=== PATIENT | male | born 1955 | race African-American/Black ===

== ENCOUNTER 2018-12-28 14:28 | Emergency (ER) | payer SELFPAY ==
[~2018-12-28] VITALS: Ht 177.8 cm; Wt 88.5 kg
--- OUTSIDE RECORDS SUMMARY | 2018-12-28 14:30 | XMS REPORT | Clinical Summary ---
Author Author [facility] Organization [facility] Address Unknown Phone Unavailable Care Team Providers [employer] Director [employer] Name Role Phone Cathryn Vivar MD PCP Allergies No Known Allergies Medications End Date Status Medication Sig Dispensed Refills Start Date Active atorvastatin (LIPITOR) 10 Take 1 tablet 90 tablet 2 mg tabletIndications: HTN by mouth at 3 (hypertension) bedtime. Active omeprazole (PRILOSEC) 20 Take 1 90 capsule 1 mg delayed release capsule by 5 capsuleIndications: GERD mouth daily. (gastroesophageal reflux disease) Active sildenafil citrate Take 0.5 10 tablet 1 (VIAGRA) 100 mg tablets by 5 tabletIndications: mouth as Erectile dysfunction needed for Erectile Dysfunction Take 30 minutes prior to intercourse as needed. Active naproxen (NAPROSYN) 500 Take 1 tablet 60 tablet 0 mg tabletIndications: by mouth 2 8 Acute pain of left times daily shoulder (with meals). Active cyclobenzaprine Take 1 tablet 30 tablet 0 (FLEXERIL) 10 mg by mouth 8 tabletIndications: Left every 8 hours upper arm pain as needed for Muscle Spasms. Active traMADol (ULTRAM) 50 mg Take 1 tablet 60 tablet 3 tabletIndications: Acute by mouth 9 pain of left shoulder every 6 hours as needed for Pain. Active lisinopril-hydrochlorothi Take 1 tablet 90 tablet 0 azide (ZESTORETIC) 20-25 by mouth 9 mg per tabletIndications: daily. Essential hypertension, benign Active amLODIPine (NORVASC) 5 mg Take 1 tablet 90 tablet 0 tabletIndications: by mouth 9 Essential hypertension daily. 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 left shoulder 01/20/2018 Discontinued DICLOFENAC SODIUM 75 mg Take 1 tablet 60 tablet 1 delayed release by mouth 2 2 tabletIndications: times daily. Chronic back pain 01/20/2018 Discontinued hydrochlorothiazide Take 1 tablet 90 tablet 2 (HYDRODIURIL) 25 mg by mouth 3 tabletIndications: HTN daily. (1 (hypertension) tablet=25 mg) 03/08/2018 Discontinued amLODIPine (NORVASC) 10 Take 1 tablet 90 tablet 2 mg tabletIndications: HTN by mouth 3 (hypertension) daily. 02/22/2018 Discontinued hydroCHLOROthiazide Take 1 tablet 30 tablet 0 (HYDRODIURIL) 25 mg by mouth 8 tabletIndications: HTN daily (1 (hypertension) tablet=25 mg). 02/22/2018 Discontinued ibuprofen (MOTRIN) 800 mg Take 1 tablet 30 tablet 0 tabletIndications: Left by mouth 8 upper arm pain every 8 hours as needed for Pain. 04/21/2018 Discontinued lisinopril-hydrochlorothi Take 1 tablet 30 tablet 1 azide (ZESTORETIC) 20-25 by mouth 8 mg per tabletIndications: daily. Essential hypertension, benign 04/03/2018 Discontinued ibuprofen (MOTRIN) 800 mg Take 1 tablet 60 tablet 0 tabletIndications: Left by mouth 8 upper arm pain every 8 hours as needed for Pain. 04/03/2018 Discontinued acetaminophen-codeine Take 1 tablet 30 tablet 0 (TYLENOL/CODEINE #3) by mouth 2 8 300-30 mg per times daily tabletIndications: as needed for Chronic left shoulder Pain. pain 03/08/2018 Discontinued amLODIPine (NORVASC) 5 mg Take 1 tablet 90 tablet 1 tabletIndications: by mouth 8 Essential hypertension daily. 09/04/2018 Discontinued amLODIPine (NORVASC) 5 mg Take 1 tablet 90 tablet 1 tabletIndications: by mouth 8 Essential hypertension daily. 05/17/2018 Discontinued acetaminophen-codeine Take 1 tablet 15 tablet 0 (TYLENOL/CODEINE #3) by mouth 2 8 300-30 mg per times daily tabletIndications: as needed for Chronic left shoulder Pain. pain 04/28/2018 Discontinued ibuprofen (MOTRIN) 800 mg Take 1 tablet 60 tablet 0 tabletIndications: by mouth 8 Chronic left shoulder every 8 hours pain as needed for Pain. 04/28/2018 Discontinued lisinopril-hydrochlorothi Take 1 tablet 30 tablet 1 azide (ZESTORETIC) 20-25 by mouth 8 mg per tabletIndications: daily. Essential hypertension, benign 05/15/2018 Discontinued traMADol (ULTRAM) 50 mg Take 2 30 tablet 0 tabletIndications: tablets by 8 Primary osteoarthritis of mouth nightly left shoulder, Rotator at bedtime as cuff tear arthropathy of needed for left shoulder Pain. 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 left shoulder 10/18/2018 Discontinued lisinopril-hydrochlorothi Take 1 tablet 90 tablet 1 azide (ZESTORETIC) 20-25 by mouth 8 mg per tabletIndications: daily. Essential hypertension, benign 06/07/2018 Discontinued traMADol (ULTRAM) 50 mg Take 2 60 tablet 0 tabletIndications: tablets by 8 Primary osteoarthritis of mouth nightly left shoulder, Rotator at bedtime as cuff tear arthropathy of needed for left shoulder Pain. 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 left shoulder 07/03/2018 Discontinued traMADol (ULTRAM) 50 mg Take 2 60 tablet 0 tabletIndications: tablets by 8 Primary osteoarthritis of mouth nightly left shoulder, Rotator at bedtime as cuff tear arthropathy of needed for left shoulder Pain. 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 left shoulder 08/14/2018 Discontinued traMADol (ULTRAM) 50 mg Take 2 60 tablet 0 tabletIndications: tablets by 9 Primary osteoarthritis of mouth nightly left shoulder, Rotator at bedtime as cuff tear arthropathy of needed for left shoulder Pain. 07/18/2018 amoxicillin (AMOXIL) 500 Take 1 30 capsule 0 mg capsuleIndications: capsule by 9 Acute upper respiratory mouth 3 times infection of multiple daily for 10 sites days. 09/13/2018 Discontinued traMADol (ULTRAM) 50 mg Take 2 60 tablet 0 tabletIndications: tablets by 9 Primary osteoarthritis of mouth nightly left shoulder, Rotator at bedtime as cuff tear arthropathy of needed for left shoulder Pain. 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 left shoulder 12/08/2018 Discontinued amLODIPine (NORVASC) 5 mg Take 1 tablet 90 tablet 0 tabletIndications: by mouth 9 Essential hypertension daily. Status Hospital, Clinic, or Ordered Dose Route Frequency Start End Date Other Facility Date Administered Medication Discontinued aspirin tablet 325 325 mg OR ONCE 01/21/20 mgIndications: Chest 18 8 pain, unspecified type Ended aspirin (ASPIRIN) 324 mg ORAL (CHEW) ONCE 01/21/20 chewable tablet 324 18 8 mgIndications: Chest pain, unspecified type Ended triamcinolone acetonide 40 mg IX ONCE 03/29/20 (KENALOG-40) injection 40 18 8 mgIndications: Chronic pain in left shoulder Ended lidocaine 1 % (XYLOCAINE) 4 mL IJ ONCE 03/29/20 injection 4 18 8 mLIndications: Chronic pain in left shoulder Active Problems Problem Noted Date Other chest pain 01/20/2018 Acute pain of left shoulder 01/20/2018 Myopia with astigmatism and presbyopia 09/09/2014 Combined form of senile cataract 09/09/2014 HTN (hypertension) 08/15/2012 Varicose vein 01/20/2012 Back pain 09/01/2009 Encounters Care Team Description Date Type Specialty Sarah France PA Abdominal pain, unspecified abdominal location (Primary Dx); Diarrhea, unspecified type; Nausea; Muscle cramping 12/28/2018 Office Visit Family Practice Cathryn Vivar MD Primary osteoarthritis of left shoulder; Rotator cuff tear arthropathy of left shoulder 12/22/2018 Refill Family Practice Cathryn Vivar MD Essential hypertension 12/08/2018 Refill [facility] Dieter Reddy MD Incomplete tear of left rotator cuff (Primary Dx); Acute pain of left shoulder 12/06/2018 Office Visit Orthopedics 12/06/2018 Travel Cathryn Vivra MD Essential hypertension, benign 10/18/2018 Refill Family Practice Dieter Reddy MD Acute pain of left shoulder (Primary Dx) 09/13/2018 Office Visit Orthopedics 09/13/2018 Cathryn Bunch MD Essential hypertension 09/04/2018 Refill Family Practice Cathryn Vivar MD Primary osteoarthritis of left shoulder; Rotator cuff tear arthropathy of left shoulder 08/14/2018 Refill Family Practice Dieter Reddy MD Pain (Primary Dx); Dietary counseling for Above / Below Normal BMI; Exercise counseling for Above Normal BMI Only!; Acute pain of left shoulder 07/19/2018 Office Visit Orthopedics Dieter Reddy MD Pain 07/19/2018 Hospital Radiology Encounter Team, 1-Pt Susan Mcnulty Chronic left shoulder pain (Primary Dx) 07/11/2018 Therapy Physical Therapy Pam Nguyen, ART Acute upper respiratory infection of multiple sites (Primary Dx) 07/08/2018 Same Day Family Practice 07/08/2018 Travel Cathryn Vivar MD Primary osteoarthritis of left shoulder; Rotator cuff tear arthropathy of left shoulder 07/03/2018 Refill Family Practice Cathryn Vivar MD Primary osteoarthritis of left shoulder; Rotator cuff tear arthropathy of left shoulder 06/28/2018 Refill Family Practice Jannette Leon MD Hadgu, Akberet T 06/08/2018 Hospital Cardiology Encounter Dieter Reddy MD Pain (Primary Dx) 06/07/2018 Office Visit Orthopedics Cathryn Vivar MD Primary osteoarthritis of left shoulder; Rotator cuff tear arthropathy of left shoulder 06/07/2018 Refill Family Practice 06/07/2018 Cathryn Bunch MD Primary osteoarthritis of left shoulder; Rotator cuff tear arthropathy of left shoulder 05/23/2018 Refill Family Practice Cathryn Vivar MD Wendt, Juliet A, MD 05/22/2018 Hospital Radiology Encounter Cathryn Vivar MD Primary osteoarthritis of left shoulder; Rotator cuff tear arthropathy of left shoulder 05/15/2018 Refill Family Practice Cristi Jonh, OD Cathryn Vivar MD Combined forms of age-related cataract of both eyes (Primary Dx); Pinguecula, bilateral; Bilateral dry eyes; Refractive error 05/01/2018 Office Visit Ophthalmology Cathryn Vivar MD Primary osteoarthritis of left shoulder (Primary Dx); Rotator cuff tear arthropathy of left shoulder; Essential hypertension, benign; Insomnia, unspecified type 04/28/2018 Office Visit Family Practice Cathryn Vivar MD Essential hypertension, benign 04/21/2018 Refill [facility] Chronic left shoulder pain 04/19/2018 Ancillary Radiology Procedure Cathryn Vivar MD Chronic left shoulder pain (Primary Dx); Need for vaccination; Angina pectoris; Lightheaded 04/03/2018 Office Visit Family Practice Cathryn Vivar MD Angina pectoris 04/03/2018 Orders Only [facility] Jeanie Laura MD Chronic pain in left shoulder (Primary Dx) 03/29/2018 Office Visit Family Practice Cathryn Vivar MD Rodriguez, Maricela Essential hypertension 03/08/2018 Nurse Only Cathryn Vivar MD Other chest pain (Primary Dx); Chronic left shoulder pain; Essential hypertension, benign; Hypertensive urgency; Preventative health care; Left upper arm pain 02/22/2018 Office Visit Family Practice Cathryn Vivar MD Chronic left shoulder pain; Preventative health care 02/22/2018 Orders Only [facility] Brandi Fernandez NP Left upper arm pain (Primary Dx) 02/01/2018 Same Day Family Practice Pablo Choudhury III, MD Other chest pain (Primary Dx); Acute pain of left shoulder; HTN (hypertension) 01/20/2018 Emergency Emergency Medicine - 01/21/2018 Sarah France PA Chest pain, unspecified type (Primary Dx); Left arm pain; Abnormal EKG; Hypertension, uncontrolled; Nonadherence to medication 01/20/2018 Office Visit Family Practice after 12/27/2017 Immunizations Name Administration Dates Next Due Influenza Vaccine 07/11/2014, 06/16/2013 Influenza Vaccine, 07/08/2018 (Deferred: Contraindication), Seasonal, Injectable 04/03/2018 (Deferred: Patient Refused) Td Tetanus, diphtheria 07/04/2007 Toxoids Vaccine Tdap (Tetanus Toxoid, 02/22/2018 (Deferred: Patient Refused) Reduced Diphtheria Toxoid And Acellular Pertussis, Absorbed) Family History Medical History Relation Name Comments Cancer Brother Leukemia Heart Father CAD Hypertension Father Cancer Mother unknown type Relation Name Status Comments Brother Father Alive Maternal Grandfather Maternal Grandmother Mother Paternal Grandfather Paternal Grandmother Social History Date Tobacco Use Types Packs/Day Years Used Quit: 02/23/2012 Former Smoker Cigarettes 0.5 30 Smokeless Tobacco: Never Used Tobacco Cessation: Counseling Given: No Comments: smoked for approximately 20 years, stopped in 2011 Drinks/Week oz/Week Comments Alcohol Use occasional Yes Food Insecurity Answer Date Recorded Within the past 12 months, you worried that your Never true 02/22/2018 food would run out before you got money to buy more. Within the past 12 months, the food you bought Never true 02/22/2018 just didn't last and you didn't have money to get more. Sex Assigned at Date Recorded Not on file Industry Job Start Date Occupation Not on file Not on file Not on file Travel End Travel History Travel Start No recent travel history available. Last Filed Vital Signs Reading Time Taken Comments Vital Sign 128/89 12/28/2018 11:20 AM CDT Blood Pressure 110 12/28/2018 11:20 AM CDT Pulse 36.6 C (97.8 F) 12/28/2018 11:20 AM CDT Temperature 25 12/28/2018 11:20 AM CDT Respiratory Rate 98% 12/28/2018 11:20 AM CDT Oxygen Saturation - - Inhaled Oxygen Concentration 88.5 kg (195 lb) 12/28/2018 11:20 AM CDT Weight 177.8 cm (5' 10") 12/28/2018 11:20 AM CDT Height 27.98 12/28/2018 11:20 AM CDT Body Mass Index Plan of Treatment Health Maintenance Due Date Last Done Comments Colorectal Cancer Scrn 2005 Annual (FIT/FOBT) Age 50 to 75 Procedures Comments Procedure Name Priority Date/Time Associated Diagnosis LIDOCAINE 1% W/EPI 30ML Routine 09/13/2018 Acute pain of left INJ IN CLINIC 8:41 AM CDT shoulder XRAY SHOULDER 3 VIEWS - Routine 07/19/2018 Pain ROUTINE 8:26 AM SPLITTER HAND TRANSTHORACIC ECHO (TTE) Routine 06/08/2018 Other chest pain 10:48 AM SPLITTER HAND MYOCARDIAL PERFUSION Routine 05/22/2018 Angina pectoris SPECT REST/STRES MULTIPLE 12:45 PM SPLITTER HAND TREADMILL STRESS-TRACING 05/22/2018 ONLY 9:22 AM SPLITTER HAND MRI SHOULDER JOINT W/O Routine 04/19/2018 Chronic left shoulder CONTRAST 6:46 PM CDT pain HEPATITIS PANEL Routine 02/22/2018 Preventative health care 10:24 AM CDT HIV-1/HIV-2 ROUTINE Routine 02/22/2018 Preventative health care SCREENING 10:24 AM CDT THYROID STIMULATING Routine 02/22/2018 Preventative health care HORMONE (TSH) 10:24 AM CDT LIPID PROFILE Routine 02/22/2018 Preventative health care 10:24 AM CDT HEMOGLOBIN A1C Routine 02/22/2018 Preventative health care 10:24 AM CDT COMPREHENSIVE METABOLIC Routine 02/22/2018 Preventative health care PANEL 10:24 AM CDT CBC/DIFF Routine 02/22/2018 Preventative health care 10:24 AM CDT 12 LEAD EKG Routine 01/20/2018 10:37 PM CDT TROPONIN I POC Routine 01/20/2018 9:08 PM CDT XRAY SHOULDER 3 VIEWS - Routine 01/20/2018 Acute pain of left ROUTINE 8:49 PM CDT shoulder XRAY CHEST 2 VIEWS Routine 01/20/2018 Other chest pain 8:49 PM CDT TROPONIN I POC Routine 01/20/2018 4:56 PM CDT 12 LEAD EKG Routine 01/20/2018 4:49 PM CDT BMP POC Routine 01/20/2018 2:39 PM CDT TROPONIN I POC Routine 01/20/2018 2:37 PM CDT HIV-1/HIV-2 ROUTINE STAT 01/20/2018 SCREENING 2:30 PM CDT CBC/DIFF STAT 01/20/2018 2:30 PM CDT 12 LEAD EKG Routine 01/20/2018 2:21 PM CDT BMP POC Routine 01/20/2018 11:07 AM CDT 12 LEAD EKG Routine 01/20/2018 Left arm pain 10:50 AM CDT after 12/27/2017 Results * XRAY SHOULDER 3 VIEWS - ROUTINE (07/19/2018 8:26 AM SPLITTER HAND) Only the most recent of 2 results within the time period is included. Specimen Impressions Performed At IMPRESSION: SMS 1. No acute radiographic abnormality. 2. Moderate osteoarthrosis of the acromioclavicular joint. 3. Mild osteoarthrosis of the glenohumeral joint. Dictated By: Shailesh Amor MD, 07/19/2018 8:37 AM I have reviewed the study and agree with the findings in this report. Signed By: Raad Gay MD, 07/19/2018 9:04 AM Narrative Performed At Left shoulder radiographs - 3 images(s) SMS HISTORY:pain COMPARISON: Shoulder radiograph 01/20/2018 DISCUSSION: Bone: No acute displaced fracture. No aggressive osseous lesion. Joints: Moderate acromioclavicular joint osteophytosis and joint space narrowing. Mild glenohumeral joint space narrowing and osteophytosis. No dislocation. Soft tissues: Appear unremarkable. Procedure Note Interface, Rad/Mammog In - 07/19/2018 9:09 AM SPLITTER HAND Left shoulder radiographs - 3 images(s) HISTORY: pain COMPARISON: Shoulder radiograph 01/20/2018 DISCUSSION: Bone: No acute displaced fracture. No aggressive osseous lesion. Joints: Moderate acromioclavicular joint osteophytosis and joint space narrowing. Mild glenohumeral joint space narrowing and osteophytosis. No dislocation. Soft tissues: Appear unremarkable. IMPRESSION IMPRESSION: 1. No acute radiographic abnormality. 2. Moderate osteoarthrosis of the acromioclavicular joint. 3. Mild osteoarthrosis of the glenohumeral joint. Dictated By: Shailesh Amor MD, 07/19/2018 8:37 AM I have reviewed the study and agree with the findings in this report. Signed By: Raad Gay MD, 07/19/2018 9:04 AM Performing Organization Address City/State/Zipcode Phone Number SMS * TRANSTHORACIC ECHO (TTE) (06/08/2018 10:48 AM SPLITTER HAND) TRANSTHORACIC Transthoracic SMS ECHO (TTE) Echo Report LEON RODRIGUEZ Age:63 Gender: M :1955 Exam Date: 06/08/2018 10:48 Exam Location: [facility] Echo Ordering Phys: CATHRYN VIVAR Referring Phys: Reading Phys:Ivana Lala MD Fellow Phys: Fellow Phys: Superintendent Of Generation: Natalie Slaughter Reason For Exam: Indications: Chest pain, Chest pain, unspecified ICD-9 Codes: R07.9 Exam Type: TRANSTHORACIC ECHO (TTE) Procedure CPT:89183 Addtional CPT: Ht (in): 70 BSA: 2.20HR: 60 Rhythm: Sinus rhythm Wt (lb): 212BP: 133/ 86 Technical Quality: Technically difficult study History: MEASUREMENTS Normal ranges based on 95% confidence intervals for adults, some normal patients may fall outside of this range especially when indexing for BSA 2D ECHO LV Diastolic Diameter PLAX4.5 cm 4.2-5.8 (M) / 3.8-5.2 (F) IVS Diastolic Thickness 1.1 cm 0.6-1.0 (M) / 0.6-0.9 (F) LVPW Diastolic Thickness1 cm 0.6-1.0 (M) / 0.6-0.9 (F) LV Relative Wall Thickness0.49 <=0.42 Aortic Root Diameter 3.2 cm LV Mass by linear [id number] g LV Mass by linear method Index78.8 g/m DOPPLER LVOT Peak Velocity 85.9 cm/s LVOT Peak Gradient 3 mmHg LVOT Mean Velocity 51.1 cm/s LVOT Mean Gradient 1 mmHg LVOT Velocity Time Integral 16.7 cm FINDINGS Left Ventricle The left ventricle is normal in size. Normal LV wall thickness. LV systolic function is normal. LVEF is 55-59%. There are no regional wall motion abnormalities.There is normal LV relaxation with normal filling pressures. Right Ventricle The right ventricle is normal in size and systolic function. Right Atrium The right atrium is normal in size. Left Atrium The left atrium is normal in size. IAS Mitral Valve Structurally normal mitral valve without significant stenosis or prolapse. There is no mitral regurgitation. Aortic Valve The aortic valve is trileaflet, mild leaflet thickening. There is no aortic stenosis. There is no aortic regurgitation. Tricuspid Valve Structurally normal tricuspid valve without significant stenosis. Insufficient TR jet to estimate pulmonary artery systolic pressure. Pulmonic Valve Structurally normal pulmonic valve without significant stenosis. There is trace pulmonic regurgitation. Pericardium No pericardial effusion. Aorta Normal aortic root for body surface area. IVC The inferior vena cava is normal in size.RA pressure is 0-5 mmHg. CONCLUSIONS Echocardiographic contrast was administered for better endocardial visualization. The left ventricle is normal in size. Normal LV wall thickness. LV systolic function is normal. LVEF is 55-59%. There are no regional wall motion abnormalities.There is normal LV relaxation with normal filling pressures. The right ventricle is normal in size and systolic function. No significant valve abnormalities. No prior study for comparison. Ivana Lala MD (Electronically Signed) Final Date:08 June 2018 14:37 2D ECHO LV Diastolic Diameter PLAX4.5 cm 4.2-5.8 (M) / 3.8-5.2 (F) IVS Diastolic Thickness 1.1 cm 0.6-1.0 (M) / 0.6-0.9 (F) LVPW Diastolic Thickness1 cm 0.6-1.0 (M) / 0.6-0.9 (F) LV Relative Wall Thickness0.49 <=0.42 Aortic Root Diameter 3.2 cm LV Mass by linear [id number] g LV Mass by linear method Index78.8 g/m DOPPLER LVOT Peak Velocity 85.9 cm/s LVOT Peak Gradient 3 mmHg LVOT Mean Velocity 51.1 cm/s LVOT Mean Gradient 1 mmHg LVOT Velocity Time Integral 16.7 cm Specimen Performing Organization Address City/State/Zipcode Phone Number SMS * MYOCARDIAL PERFUSION SPECT REST/STRES TAMMY (05/22/2018 12:45 PM SPLITTER HAND) MYOCARDIAL Myocardial Perfusion SMS PERFUSION SPECT Report REST/STRES LEON RODRIGUEZ Age:63Gender: M :1955 Exam Date: 05/22/2018 10:59 Exam Location:[facility] Ordering Phys: CATHRYN VIVAR Referring Phys: Reading Phys:Consuelo Keller MD Fellow Phys: Gian Chinchilla M.D. Fellow Phys: Varun Ferguson M.D. Resident: Technologist: Mary Mcnamara Reason For Exam: Indications: ANGINA, Other forms ICD-9 Codes:I20.9 Exam Type: Myocardial Perfusion Report Procedure CPT: 82216 Additional CPT: BP:/ HR: Risk Factors: Previous Cardiac Procedures: Cardiac History: 63 year-old with hx of HTN, HLD, smoker who presents with atypical pain. Pertinent Meds: Meds past 24 hrs: Pretest Chest Pain: CARDIOLOGY STRESS TEST Pharmacologi Cardiology exercise stress test results pending under separate report. Please look in EPIC under the Procedures Tab in Chart Review. IMAGE PROTOCOLRst/Str 1 Day Radiopharmaceutical Dose (mCi)Duration (min)Img Date Img Time Rest: Tc-99m 13.8 REST [id number] Tetrofosmin Stress: Tc-99m 36.0 STRESS [id number] Tetrofosmin Administration Site:Right antecubital fossa SPECT RESULTS Technical Quality:Adequate Raw Data Analysis:Diaphragm atic attenuation, Adequate Stress Perfusion Rest Perfusion Summed Stress Score:0 Summed Rest Score: 0 Summed Difference Score: 0 0 - Normal 2 - Abnormal Uptake 4 - Absent 1 - Mildly Reduced Uptake 3 - Severely Reduced Tracer Uptake X - Not Interpretable RV: Stress images show a normal pattern of perfusion. Resting images show no change in the pattern of perfusion. FUNCTION (calculated via Gated SPECT) Resting LV EF: % EDV:118ml (70-100 ml) Post Stress LV EF: 45% TID:1.24 ESV:65 ml (30-50 ml) Technical Quality: LV Size & Function: LV ejection fraction is mildly depressed. LV cavity size is normal. LV Regional Function: LV function is globally mildly depressed. Other Findings: Variable Not Implemented IMPRESSIONS 1. Myocardial perfusion imaging is normal. EF is mildly depressed. 2. No scan evidence of ischemia or scar. 3. Overall left ventricular function is mildly depressed with globally depressed wall motion. 4. Abnormal gated SPECT left ventricular ejection fraction of 45%. 5. Normal left ventricular size. 6. No previous study for comparison. 7. Please see ECG report in Epic for details of tracing interpretation. Roxana Control: Do not remove! Consuelo Keller MD (Electronically Signed) Final Date:22 May 2018 15:29 Specimen Performing Organization Address [facility] Phone Number SMS * TREADMILL STRESS-TRACING ONLY (05/22/2018 9:22 AM SPLITTER HAND) Stress Test [facility] Test Date:2018-05-22 Pat Name: LEON RODRIGUEZ Department: [id number] Room: Gender: Monotypist: YAKOV WREN :1955-0 01-19 Requested By: CARLITA KELLER Order Number: [id number] Reading MD: Lucrecia Valdes M.D. Interpretive Statements ECG PORTION OF TREADMILL NUCLEAR STRESS TEST Indication: chest pain Findings: The patient exercised according to the ANGEL for 6:36 min:s, achieving a work level of Max. METS: 7.00. The resting heart rate of 74 bpm yaanna to a maximal heart rate of 142 bpm. This value represents 90 % of the maximal, age-predicted heart rate. The resting blood pressure of 130/80 mmHg , ayanna to a maximum blood pressure of 198/100 mmHg. The exercise test was stopped due to Target heart rate achieved. Conclusions: 1. Testing terminated due to end of test. No chest pain/pressure noted. 2. Baseline EKG:SR without ST changes.Stress EKG: SR with 1 - 1.[address] depressions at peak exercise which nearly resolved in early recovery. 3. Noted arrhythmias:occasional premature ventricular contractions 4. Please see results from nuclear stress test from the same date for perfusion data. Electronically Signed On 05-22-2018 15:07:13 SPLITTER HAND by Lucrecia Valdes M.D. Specimen Performing Organization Address [facility] Phone Number SMS * MRI SHOULDER JOINT W/O CONTRAST (04/19/2018 6:46 PM CDT) Specimen Impressions Performed At IMPRESSION: SMS 1.High grade tearing and retraction of the articular fibers of the conjoined tendon and focal full-thickness tearing of the anterior supraspinous tendon, and mild tendinosis of the biceps tendon. 2.Mild to moderate degenerative changes of the glenohumeral and acromioclavicular joints, including degenerative tearing of the labrum. Dictated By: Lowell Dietrich DO, 04/20/2018 8:23 AM I have reviewed the study and agree with the findings in this report. Signed By: Gaston Mccartney DO, 04/20/2018 3:34 PM Narrative Performed At MRI LEFT SHOULDER WITHOUT CONTRAST SMS TECHNIQUE: Magnetic resonance imaging of the left SHOULDER was performedWITHOUT injected contrast. HISTORY:Worsening pain COMPARISON: Left shoulder radiographs 01/20/2018 DISCUSSION: Muscles and Tendons: Rotator Cuff: Supraspinatus/infraspinatus:High-grade articular sided tearing with 2 cm retraction of the articular sided fibers. Focal full-thickness tear of the anterior supraspinatus. Diffuse mild muscle atrophy. Teres minor:Intact Subscapularis:Intact Biceps Tendon:Thickening and intrasubstance signal adjacent to the lesser tuberosity. Joints: Glenohumeral Joint: Labrum:Complex degenerative tearing and attenuation of the posterosuperior labrum, and focal detachment of the posteroinferior labrum. Ruby variant of anterior superior labrum. Articular Cartilage: Mild erosions of the cartilage. AC joint: Mild hypertrophic degenerative changes. Bone: Enthesopathic reactive changes in the greater and lesser tuberosities. Healed fracture deformity of the distal clavicle. The acromion is unremarkable. No focal or infiltrative bone marrow replacing abnormality. Soft Tissues: Trace fluid within the subacromial and subdeltoid bursa. Procedure Note Interface, Rad/Mammog In - 04/20/2018 3:39 PM CDT MRI LEFT SHOULDER WITHOUT CONTRAST TECHNIQUE: Magnetic resonance imaging of the left SHOULDER was performed WITHOUT injected contrast. HISTORY: Worsening pain COMPARISON: Left shoulder radiographs 01/20/2018 DISCUSSION: Muscles and Tendons: Rotator Cuff: Supraspinatus/infraspinatus: High-grade articular sided tearing with 2 cm retraction of the articular sided fibers. Focal full-thickness tear of the anterior supraspinatus. Diffuse mild muscle atrophy. Teres minor: Intact Subscapularis: Intact Biceps Tendon: Thickening and intrasubstance signal adjacent to the lesser tuberosity. Joints: Glenohumeral Joint: Labrum: Complex degenerative tearing and attenuation of the posterosuperior labrum, and focal detachment of the posteroinferior labrum. Eli variant of anterior superior labrum. Articular Cartilage: Mild erosions of the cartilage. AC joint: Mild hypertrophic degenerative changes. Bone: Enthesopathic reactive changes in the greater and lesser tuberosities. Healed fracture deformity of the distal clavicle. The acromion is unremarkable. No focal or infiltrative bone marrow replacing abnormality. Soft Tissues: Trace fluid within the subacromial and subdeltoid bursa. IMPRESSION IMPRESSION: 1. High grade tearing and retraction of the articular fibers of the conjoined tendon and focal full-thickness tearing of the anterior supraspinous tendon, and mild tendinosis of the biceps tendon. 2. Mild to moderate degenerative changes of the glenohumeral and acromioclavicular joints, including degenerative tearing of the labrum. Dictated By: Lowell Dietrich DO, 04/20/2018 8:23 AM I have reviewed the study and agree with the findings in this report. Signed By: Gaston Mccartney DO, 04/20/2018 3:34 PM Performing Organization Address [facility] Phone Number SMS * HIV-1/HIV-2 ROUTINE SCREENING (02/22/2018 10:24 AM CDT) Only the most recent of 2 results within the time period is included. HIV-1/HIV-2 Negative NEG BT MAIN-STATION 3 Specimen Performing Organization Address [facility] Phone Number MISYS BT MAIN-STATION 3 * HEMOGLOBIN A1C (02/22/2018 10:24 AM CDT) Hemoglobin A1c 6.3 (H) 4.3 - 6.1 % BT DIAGNOSTIC IMMUNOLOGY Est Average 134.1 mg/dL BT DIAGNOSTIC Gluc IMMUNOLOGY Specimen Blood Performing Organization Address [facility] Phone Number MISYS BT DIAGNOSTIC IMMUNOLOGY * COMPREHENSIVE METABOLIC PANEL(DBIL NOT INCLUDED) (02/22/2018 10:24 AM CDT) Albumin 4.1 (L) 4.2 - 5.5 g/dL BT MAIN-STATION 1 Calcium 9.3 8.6 - 10.3 mg/dL BT MAIN-STATION 1 CO2 28 21 - 31 mmol/L BT MAIN-STATION 1 Chloride 102 98 - 107 mmol/L BT MAIN-STATION 1 Creatinine 1.00 0.7 - 1.3 mg/dL BT MAIN-STATION 1 Glucose 113 (H) 70 - 110 mg/dL BT MAIN-STATION 1 Alkaline 105 (H) 34 - 104 U/L BT MAIN-STATION Phosphatase, S 1 Potassium 3.9 3.5 - 5.1 mmol/L BT MAIN-STATION 1 Sodium 142 136 - 145 mmol/L BT MAIN-STATION 1 ALT 14 7 - 52 U/L BT MAIN-STATION 1 AST (SGOT) 22 13 - 39 U/L BT MAIN-STATION 1 BUN 14 7 - 25 mg/dL BT MAIN-STATION 1 Bilirubin, 0.6 0.2 - 1.2 mg/dL BT MAIN-STATION Total 1 Protein, Total, 7.4 6.0 - 8.3 g/dL BT MAIN-STATION Serum 1 GFR, Estimated >60 mL/min/1.73 m2 BT MAIN-STATION 1 eGFR If Africn >60 mL/min/1.73 m2 BT MAIN-STATION Am 1 Anion Gap 12 BT MAIN-STATION 1 Specimen Blood Performing Organization Address City/[facility] Phone Number MISYS MAIN-STATION 1 * TSH (02/22/2018 10:24 AM CDT) TSH 0.69 0.57 - 3.74 uIU/mL BT MAIN-STATION 1 Specimen Blood Performing Organization Address City/[facility]/Zipcode Phone Number MISYS BT MAIN-STATION 1 * LIPID PROFILE (02/22/2018 10:24 AM CDT) Cholesterol 200 mg/dL BT MAIN-STATION Comment: 1 REFERENCE RANGE: Desirable: <200 mg/dL Borderline: 200-240 mg/dL High Risk: >240 mg/dL Triglyceride 156 (H) <150 mg/dL BT MAIN-STATION Comment: 1 REFERENCE RANGE: Normal: <150 mg/dL Borderline High: 150-199 mg/dL High: 200-499 mg/dL Very High: >yc=179 mg/dL HDL 43 mg/dL BT MAIN-STATION Comment: 1 Increased CHD risk: <40 mg/dL Decreased CHD risk: >60 mg/dL LDL 126 mg/dL BT MAIN-STATION Comment: 1 REFERENCE RANGE: Optimal: <100 mg/dL Near Optimal: 100-129 mg/dL Borderline High: 130-159 mg/dL High: 160-189 mg/dL Very High: >xp=162 mg/dL Specimen Blood Performing Organization Address [facility] Phone Number MISYS BT MAIN-STATION 1 * HEPATITIS PANEL (02/22/2018 10:24 AM CDT) HCV IgG Negative NEG BT MAIN-STATION 3 HBsAg Negative NEG BT MAIN-STATION 3 HAV, IgM Negative NEG BT MAIN-STATION 3 HBcAb, IgM Negative NEG BT MAIN-STATION 3 Specimen Blood Performing Organization Address [facility] Phone Number MISYS BT MAIN-STATION 3 * CBC/DIFF (02/22/2018 10:24 AM CDT) Only the most recent of 2 results within the time period is included. WBC 4.6 4.5 - 12.0 K/uL BT MAIN-STATION 2 RBC 5.16 4.60 - 6.20 M/uL BT MAIN-STATION 2 Hemoglobin 14.2 14.0 - 18.0 g/dL BT MAIN-STATION 2 Hematocrit 44.9 40.0 - 54.0 % BT MAIN-STATION 2 MCV 87 82 - 92 fL BT MAIN-STATION 2 MCH 27.5 27.0 - 31.0 pg BT MAIN-STATION 2 MCHC 31.6 (L) 32.0 - 36.0 g/dL BT MAIN-STATION 2 RDW 49.2 (H) 35.1 - 43.9 fL BT MAIN-STATION 2 Platelets 275 150 - 400 K/uL BT MAIN-STATION 2 Mean Platelet 13.6 (H) 9.4 - 12.4 fL BT MAIN-STATION Volume 2 Percent NRBC 0.0 BT MAIN-STATION 2 Absolute NRBC 0.00 BT MAIN-STATION 2 Neutrophils 43.0 34.0 - 67.9 % BT MAIN-STATION 2 Lymphs 38.5 21.8 - 50.0 % BT MAIN-STATION 2 Monocytes 12.8 (H) 5.3 - 12.0 % BT MAIN-STATION 2 Eos 4.8 0.8 - 5.0 % BT MAIN-STATION 2 Basos 0.2 0.2 - 1.2 % BT MAIN-STATION 2 Immature 0.7 (H) 0.0 - 0.5 BT MAIN-STATION Granulocytes 2 Neutrophils 1.98 1.78 - 5.36 K/uL BT MAIN-STATION (Absolute) 2 Lymphs 1.77 1.32 - 3.57 K/uL BT MAIN-STATION (Absolute) 2 Monocytes(Absol 0.59 0.30 - 0.82 K/uL BT MAIN-STATION diana) 2 Eos (Absolute) 0.22 0.04 - 0.54 K/uL BT MAIN-STATION 2 Baso (Absolute) 0.01 0.01 - 0.08 K/uL BT MAIN-STATION 2 Immature Grans 0.03 0.00 - 0.03 K/uL BT MAIN-STATION (Abs) 2 Specimen Blood Performing Organization Address City/[facility]/Zipcode Phone Number MISYS BT MAIN-STATION 2 * 12 LEAD EKG (01/20/2018 10:37 PM CDT) 12 LEAD EKG FOR [facility] Test Date:2018-01-20 Pat Name: LEON RODRIGUEZ Department: Room: Gender: M Monotypist: [id number] :1955-0 01-19 Requested By: Order Number: Nancy bermudez MD: Lucretia Gordon M.D. Measurements Intervals [place] Rate: 57 P:57 NM: 185 QRS: 61 QRSD: 90 T:122 QT: 404 QTc:396 Interpretive Statements SINUS BRADYCARDIA MODERATE T-WAVE ABNORMALITY, CONSIDER ANTEROLATERAL ISCHEMIA Electronically Signed On 01-20-18 23:10:21 CDT by Lucretia Gordon M.D. Specimen Performing Organization Address City/[facility] Phone Number [facility] * TROPONIN I POC (01/20/2018 9:08 PM CDT) Only the most recent of 3 results within the time period is included. Troponin POC 0.02 0.00 - 0.08 ng/mL BT MAIN-STATION 1 Specimen Performing Organization Address City/State/Zipcode Phone Number MISYS BT MAIN-STATION 1 * XRAY CHEST 2 VIEWS (01/20/2018 8:49 PM CDT) Specimen Impressions Performed At IMPRESSION: [facility] 1.No acute thoracic abnormality. 2.Mild central pulmonary vascular congestion. Dictated By: Parvez Mancini MD, 01/20/2018 9:12 PM I have reviewed the study and agree with the findings in this report. Signed By: North Pan MD, 01/20/2018 10:23 PM Narrative Performed At EXAMINATION:XRAY CHEST 2 VIEWS [facility] INDICATION: acs r/o COMPARISON:None FINDINGS:PA and lateral views TUBES and LINES:None. LUNGS:Lungs are well inflated. Central pulmonary vascular congestion. There is no evidence of pneumonia or pulmonary edema. PLEURA:No pleural effusion or pneumothorax. HEART AND MEDIASTINUM:The cardiomediastinal silhouette is unremarkable. Atherosclerotic calcifications of the aortic arch. BONES AND SOFT TISSUES:No acute findings. Degenerative changes of the right acromioclavicular joint. UPPER ABDOMEN: No free air under the diaphragm. Procedure Note Interface, Rad/Mammog In - 01/20/2018 10:28 PM CDT EXAMINATION: XRAY CHEST 2 VIEWS INDICATION: acs r/o COMPARISON: None FINDINGS: PA and lateral views TUBES and LINES: None. LUNGS: Lungs are well inflated. Central pulmonary vascular congestion. There is no evidence of pneumonia or pulmonary edema. PLEURA: No pleural effusion or pneumothorax. HEART AND MEDIASTINUM: The cardiomediastinal silhouette is unremarkable. Atherosclerotic calcifications of the aortic arch. BONES AND SOFT TISSUES: No acute findings. Degenerative changes of the right acromioclavicular joint. UPPER ABDOMEN: No free air under the diaphragm. IMPRESSION IMPRESSION: 1. No acute thoracic abnormality. 2. Mild central pulmonary vascular congestion. Dictated By: Parvez Mancini MD, 01/20/2018 9:12 PM I have reviewed the study and agree with the findings in this report. Signed By: North Pan MD, 01/20/2018 10:23 PM Performing Organization Address City/State/Zipcode Phone Number SMS * 12 LEAD EKG (01/20/2018 4:49 PM CDT) 12 LEAD EKG FOR SMS [facility] Test Date:2018-01-20 Pat Name: LEON RODRIGUEZ Department: Room: Gender: M Monotypist: [id number] :1955-0 01-19 Requested By: Order Number: R aidan RUSH: Nicol SALINAS M.D. Measurements Intervals [place] Rate: 56 P:9 NM: 187 QRS: 13 QRSD: 87 T:-22 QT: 386 QTc:373 Interpretive Statements SINUS BRADYCARDIA MODERATE T-WAVE ABNORMALITY, CONSIDER LATERAL ISCHEMIA T-WAVE ABNORMALITY, CONSIDER INFERIOR ISCHEMIA Electronically Signed On 01-20-18 17:58:04 CDT by Nicol SALINAS M.D. Specimen Performing Organization Address City/[facility] Phone Number SMS * BMP POC (01/20/2018 2:39 PM CDT) Only the most recent of 2 results within the time period is included. CO2 POC 27 21 - 32 mmol/L BT MAIN-STATION 1 Chloride POC 105 98 - 107 mmol/L BT MAIN-STATION 1 Potassium POC 3.6 3.50 - 5.10 mmol/L BT MAIN-STATION 1 Sodium POC 143 136 - 145 mmol/L BT MAIN-STATION 1 Glucose POC 113 (H) 74 - 106 mg/dL BT MAIN-STATION 1 Urea Nitrogen 10 7 - 18 mg/dL BT MAIN-STATION POC 1 Creatinine POC 0.9 0.6 - 1.3 mg/dL BT MAIN-STATION 1 Calcium Ionized 1.13 (L) 1.15 - 1.29 mmol/L BT MAIN-STATION POC 1 Hemoglobin POC 16.7 14.0 - 18.0 g/dL BT MAIN-STATION 1 Hematocrit POC 49.0 40.0 - 54.0 % BT MAIN-STATION 1 GFR, Estimated >60 mL/min/1.73 m2 BT MAIN-STATION 1 GFR, Estim, >60 mL/min/1.73 m2 BT MAIN-STATION Afr-Am 1 Specimen Performing Organization Address City/[facility] Phone Number MISYS BT MAIN-STATION 1 * 12 LEAD EKG (01/20/2018 2:21 PM CDT) 12 LEAD EKG FOR [facility] Test Date:2018-01-20 Pat Name: LEON RODRIGUEZ Department: Room: Gender: M Monotypist: [id number] :1955-0 01-19 Requested By: Order Number: Nancy bermudez MD: Lucrecia Valdes M.D. Measurements Intervals [place] Rate: 65 P:19 NM: 174 QRS: 40 QRSD: 79 T:-65 QT: 381 QTc:398 Interpretive Statements SINUS RHYTHM MODERATE T-WAVE ABNORMALITY, CONSIDER ANTEROLATERAL ISCHEMIA MODERATE T-WAVE ABNORMALITY, CONSIDER INFERIOR ISCHEMIA Electronically Signed On 01-20-18 15:15:51 CDT by Lucrecia Valdes M.D. Specimen Performing Organization Address City/State/Zipcode Phone Number SMS * 12 LEAD EKG (01/20/2018 10:50 AM CDT) 12 LEAD EKG FOR SHAHRZAD Rodriges [facility] Test Date:2018-01-20 Pat Name: LEON RODRIGUEZ Department: Room: Gender: Monotypist: :1955-0 01-19 Requested By: Order Number: Nancy bermudez MD: Lucretia Gordon M.D. Measurements Intervals [place] Rate: 61 P:8 NM: 195 QRS: 14 QRSD: 85 T:-24 QT: 389 QTc:394 Interpretive Statements SINUS RHYTHM MODERATE T-WAVE ABNORMALITY, CONSIDER LATERAL ISCHEMIA Electronically Signed On 01-20-18 11:12:00 CDT by Lucretia Gordon M.D. Specimen Performing Organization Address City/State/Zipcode Phone Number [facility] after 12/27/2017 Insurance Type Payer Benefit Subscriber ID Effective Phone Address Plan / Dates Group [employer] PLAN H[employer] PLAN xxxxxx 2018-6 [phone] [place] [address] [facility] xxxxxx 2018-6 [address] [place] [id number] [place] [address]
--- OUTSIDE RECORDS SUMMARY | 2018-12-28 14:31 | XMS REPORT ---
[facility] Address Unknown Phone Unavailable Care Team Providers Care Picture Hanger Name Role Phone Unavailable Unavailable Problems This patient has no known problems. Allergies, Adverse Reactions, Alerts This patient has no known allergies or adverse reactions. Medications This patient has no known medications. Encounters Start Date/Time End Date/Time Encounter Type Admission Type Attending [facility] Care Department Encounter ID 2018-12-28 11:19:06 2018-12-28 11:19:06 Outpatient [facility] [id number] 2018-12-06 07:33:24 2018-12-06 07:33:24 Outpatient [facility] [id number] 2018-09-13 08:33:39 2018-09-13 08:33:39 Outpatient [facility] [id number] 2018-07-19 08:01:45 2018-07-19 08:01:45 Outpatient [facility] [id number] 2018-07-19 07:37:27 2018-07-19 07:37:27 Outpatient [facility] [id number] 2018-07-19 00:00:00 2018-07-19 00:00:00 Outpatient [facility] [id number] 2018-07-11 15:16:23 2018-07-11 15:16:23 Outpatient [facility] [id number] 2018-07-08 09:41:04 2018-07-08 09:41:04 Outpatient [facility] [id number] 2018-06-14 00:00:00 2018-06-14 00:00:00 Outpatient [facility] [id number] 2018-06-08 10:18:07 2018-06-08 10:18:07 Outpatient [facility] [id number] 2018-06-07 11:27:19 2018-06-07 11:27:19 Outpatient [facility] [id number] 2018-05-23 00:00:00 2018-05-23 00:00:00 Outpatient [facility] [id number] 2018-05-22 07:15:12 2018-05-22 07:15:12 Outpatient [facility] [id number] 2018-05-15 00:00:00 2018-05-15 00:00:00 Outpatient [facility] [id number] 2018-05-01 13:32:49 2018-05-01 13:32:49 Outpatient [facility] [id number] 2018-04-28 14:11:41 2018-04-28 14:11:41 Outpatient [facility] [id number] 2018-04-21 00:00:00 2018-04-21 00:00:00 Outpatient [facility] [id number] 2018-04-19 17:48:00 2018-04-19 17:48:00 Outpatient [facility] [id number] 2018-04-19 00:00:00 2018-04-19 00:00:00 Outpatient [facility] [id number] 2018-04-03 14:03:00 2018-04-03 14:03:00 Outpatient [facility] [id number] 2018-04-03 00:00:00 2018-04-03 00:00:00 Outpatient [facility] [id number] 2018-03-29 15:18:17 2018-03-29 15:18:17 Outpatient [facility] [id number] 2018-03-08 14:33:46 2018-03-08 14:33:46 Outpatient [facility] [id number] 2018-02-22 10:32:43 2018-02-22 10:32:43 Outpatient [facility] [id number] 2018-02-22 09:00:04 2018-02-22 09:00:04 Outpatient [facility] [id number] 2018-02-01 16:34:11 2018-02-01 16:34:11 Outpatient [facility] [id number] 2018-01-20 20:32:43 2018-01-20 20:32:43 Emergency [facility] [id number] 2018-01-20 17:46:41 2018-01-20 17:46:41 Emergency [facility] MED [id number]
[2018-12-28] MEDS ORDERED: SODIUM CHLORIDE 0.9% 1000ML 1,000 ML IV STA (15:17)
[2018-12-28 15:28] LABS: BASOPHILS % 0.1 % (0.0-1.0); EOSINOPHILS % 0.3 % (0.0-6.0); HEMATOCRIT 45.9 % (38.2-49.6); HEMOGLOBIN 15.3 g/dL (14.0-18.0); LYMPHOCYTES # (AUTO) 0.4 (1.0-3.2); LYMPHOCYTES % 4.1 % (18.0-39.1); MEAN CORPUSCULAR HEMOGLOBIN 27.4 pg (28-32); MEAN CORPUSCULAR HGB CONC 33.3 g/dL (31-35); MEAN CORPUSCULAR VOLUME 82.3 fL (81-99); MONOCYTES # (AUTO) 0.6 (0.2-0.8); MONOCYTES % 5.8 % (4.4-11.3); NEUTROPHILS # (AUTO) 8.8 (2.1-6.9); NEUTROPHILS % 89.2 % (38.7-80.0); PLATELET COUNT 362 x10e3/uL (140-360); RED BLOOD COUNT 5.58 x10e6/uL (4.3-5.7); RED CELL DISTRIBUTION WIDTH 15.4 % (11.7-14.4)
[2018-12-28] MEDS ORDERED: FAMOTIDINE 20 MG/2 ML VIAL IV ONE (15:45)
[2018-12-28] MEDS ORDERED: ONDANSETRON HCL INJ 2MG/ML 2ML 2 MG/ML VIAL IV ONE (15:45)
[2018-12-28 15:47] LABS: ALBUMIN 4.7 g/dL (3.5-5.0); ANION GAP 18.4 mmol/L (8-16); CALCIUM 10.6 mg/dL (8.4-10.2); CREATININE, SERUM 1.84 mg/dL (0.72-1.25); POTASSIUM 4.4 mmol/L (3.5-5.1)
[2018-12-28 15:57] LABS: CREATINE KINASE 149 IU/L (30-200); LIPASE 19 U/L (8-78)
[2018-12-28] MEDS ORDERED: ZOFRAN4 MG SL (17:38)
[2018-12-28 18:11] VITALS: BP 112/79
== END 2018-12-28 18:12 | disposition home or self-care (01) ==
LOC: ER 14:28
DX: R19.7 Diarrhea, unspecified (principal); K52.29 Other allergic and dietetic gastroenteritis and colitis
CPT/HCPCS: 36415; 80053; 82550; 82553; 83690; 84484; 85025; 99284; J2405; J7030